=== PATIENT | male | born 1985 | race Caucasian/White ===

== ENCOUNTER 2016-06-22 20:46 | Emergency (ER) | payer OTHER ==
[~2016-06-22] VITALS: Ht 175.3 cm; Wt 71.4 kg
[~2016-06-22 20:46] MED LIST: IBUP-1827 PO; ONDA4TAB9 PO
[2016-06-22 21:00] VITALS: BP 129/79; PULSE 71; RESP 20; O2SAT 99
--- NOTE | 2016-06-23 00:18 | ED.REPORT ---
HPI-Extremity Problem Upper Date of Service Jun 23, 2016 ED Provider: Erick Webster MD A 31 year old male with a history of recent medical visit for kidney stones presents to the ED complaining of an infection in his right arm. The pt was seen at [facility] for kidney stones several days ago, at which point an IV was placed. The IV site was bleeding during this initial visit. The site became red , painful, and swollen following discharge. The pt was seen for these symptoms yesterday and was prescribed Clindamycin. He has taken the doses for yesterday and today. His symptoms, however, have worsened and he is now experiencing a fever and difficulty moving his arm due to the pain. Nursing Notes Stated Complaint: RIGHT ARM INFECTION Chief Complaint: Extremity Trauma Nursing Notes Reviewed: Yes Allergies: Coded Allergies: No Known Allergies (Unverified , 11/06/15) Scheduled Amoxicillin/Clav K 875-125 mg (Augmentin 875-125 mg) 1 Each Tablet 1 TABLET PO BID Ondansetron ODT (Ondansetron ODT) 8 Mg Tab.rapdis 8 MG PO QID Scheduled PRN Ibuprofen (Ibuprofen) 600 Mg Tablet 600 MG PO QID PRN PRN For Pain Naproxen (Naprosyn) 500 Mg Tablet 500 MG PO BID PRN PRN For Pain Ondansetron ODT (Zofran ODT) 4 Mg Tablet 4 MG PO Q4H PRN PRN For Nausea oxyCODONE-Acetaminophen 5-325 mg (oxyCODONE-Acetaminophen 5-325 mg) 1 Each Tablet 1-2 TAB PO Q6H PRN PRN For Pain General Time Seen by : 00:17 Chief Complaint Other (Right arm infection) Hx Obtained From: Patient Arrived By: Walk-in Onset Occurred: 4 days ago ("several days") Symptom Duration: Since onset Recent Healthcare: No recent hospitalization, Recent doctor visit Similar Sx Previous: No Past Medical History Past Medical History kidney stones Past Surgical History none reported Smoking History Unknown if Ever Smoker Ambulatory Status Independent Review of Systems Review of Systems Note: right arm redness Constitutional: Reports: Fever Musculoskeletal: Reports: Extremity pain, Extremity swelling, Denies: Back pain Skin: Denies Rash Complete sys rev & neg: except as marked. Cardiovascular: Denies: Chest pain GI: Denies: Abdominal pain, Vomiting Physical Exam Initial Vital Signs Vital Signs (First) Date Time Temp Pulse Resp B/P Pulse Ox O2 Delivery O2 Flow Rate FiO2 06/22/16 21:00 37.1 71 20 129/79 99 Room Air Initial VS: Reviewed General/Constitutional: Awake, Alert Neck: Atraumatic, Supple, Full range of motion Respiratory / Chest: Atraumatic, Breath sounds NL, Breath sounds = bilat, No respiratory distress Cardiovascular: Heart rate NL, Regular rhythm, Heart sounds NL Upper Extremity / MS: No deformity erythematous patch around IV site on right arm erythema and tenderness proximal and distal to area difficulty moving right arm axillary adenopathy Skin: Atraumatic, Warm, Dry Neurologic: Oriented X3, Speech NL, No motor deficits, No sensory deficits Head / Eyes: Atraumatic, Normocephalic, PERRL, EOMI ENT: Atraumatic, Airway patent, Mucous membranes moist Abdomen: Atraumatic, Soft, Non-tender Back: Atraumatic, Full range of motion Lower Extremity / Pelvis / MS: Atraumatic, Full range of motion Psychiatric: Affect NL, Mood NL Re-Eval/Medical Decision Med Decision/Clinical Course 31-year-old presents with arm cellulitis at an IV site. He is been on clindamycin for two days with no improvement. Hospital admission offered but declined. We will add Augmentin to his current clindamycin. Hot soaks elevation and brief Percocet course. He is been somewhat evasive about pain medicines available home, initially saying that he had thrown away his Vicodin, but has Vicodin pills currently in his possession. Nevertheless, he has an obviously painful arm and will require some pain relief. Advised explicitly that his narcotics will not be renewed via the emergency department. Source of Hx: Old records Re-Evaluation/Progress : Time of Eval: 00:17 Patient Status: Condition improved Re-Evaluation/Progress Note: Pt informed of the diagnosis and plan for discharge during the initial interview. The pt understands and agrees with the plan. All questions are addressed at this time. Counseled Regarding: Diagnosis, Need for follow-up, When/why to return to ED Discharge & Departure Impression: Primary Impression: Cellulitis Additional Impression: IV site infection Disposition: Home Discharge Condition All VS Reviewed: Yes Condition: Stable Patient Instructions: Cellulitis (ED) Additional Instructions: Add Augmentin twice daily to your antibiotics currently in use. Continue Percocet two tabs every four hours as needed for pain. Hot soak to the area four times daily for 15-20 minutes each time Follow-up with your doctor in the office. Return if worsening despite treatment. This may ultimately require inpatient treatment, but I understand your desire to try and manage this as an outpatient. Add Naprosyn twice daily also for pain. Zofran if needed for nausea, to four times daily. Referrals: Moni Mina MD (PCP) aNomy Attestation Portions of this note were transcribed by Steve Barrera. I, Dr. Webster personally performed the history, physical exam and medical decision-making; I reviewed and confirmed the accuracy of the information in the transcribed note. Signed by: Naomy Leiva, 06/23/2016 and 0039. copies to: Moni Mina MD, Christopher W MD Jun 23, 2016 00:18 STEVE BARRERA Jun 23, 2016 00:31
[2016-06-23] MEDS ORDERED: _oxyCODONE/APAP 5-325 mg Tablet PO PRN (00:30)
[2016-06-23] MEDS ORDERED: oxyCODONE-Acetamin 5-325 mg Tablet PO ONE (00:30)
[2016-06-23] MEDS ORDERED: Amoxicillin-Clav 875-125 mg Tablet PO ONE (00:30)
[2016-06-23] MEDS ORDERED: Ketorolac 30 mg/mL 2 mL Inj IM ONE (00:30)
[2016-06-23] MEDS ORDERED: NAPR500T PO (00:33)
[2016-06-23] MEDS ORDERED: ONDA8TAB10 PO (00:33)
[2016-06-23] MEDS ORDERED: AMOX-366 PO (00:33)
[2016-06-23] MEDS ORDERED: OXYC1TAB24 PO (00:34)
== END 2016-06-23 01:33 | disposition home or self-care (01) ==
LOC: SED 20:46
DX: L03.113 Cellulitis of right upper limb (principal); T82.7XXA Infection and inflammatory reaction due to other cardiac and vascular devices, implants and grafts, initial encounter; Y71.2 Prosthetic and other implants, materials and accessory cardiovascular devices associated with adverse incidents; Y92.9 Unspecified place or not applicable; Y93.9 Activity, unspecified; Y99.9 Unspecified external cause status; Z87.442 Personal history of urinary calculi
CPT/HCPCS: 96372; 99283; J1885

== ENCOUNTER 2016-07-10 17:59 | Emergency (ER) | payer OTHER ==
[~2016-07-10] VITALS: Ht 175.3 cm; Wt 70.9 kg
[~2016-07-10 17:59] MED LIST changes: +AMOX-366 PO; +NAPR500T PO; +ONDA8TAB10 PO; +OXYC1TAB24 PO
[2016-07-10 18:02] VITALS: BP 145/92; PULSE 65; RESP 15; O2SAT 98
[2016-07-10] MEDS ORDERED: 0.9% Sodium Chloride 1,000 ML IV ONE ×2 (18:15→20:05)
--- NOTE | 2016-07-10 18:47 | ED.REPORT ---
HPI-Abd Pain M Under 39 Date of Service Jul 10, 2016 ED Provider: Michi Lopez MD A 31 year old male with a history of anxiety and nephrolithiasis presents to the ED with sharp LUQ abdominal pain onset three days ago, after reportedly trying methamphetamines for the first time. Associated symptoms include generalized myalgias, nausea, vomiting, and diarrhea. The patient denies dysuria or other symptoms. He has been seen twice in the ED at [facility] since onset of his symptoms, most recently this morning. The patient reports using methamphetamines again yesterday. His labs from [facility] on 07/09/16 indicate a normal white count and unremarkable chemistries. His urinalysis at that time resulted 1+ ketones and 1+ protein. Nursing Notes Stated Complaint: ABDOMINAL PAIN Chief Complaint: Male Abdominal Pain Nursing Notes Reviewed: Yes Allergies: Coded Allergies: No Known Allergies (Unverified , 11/06/15) Scheduled Amoxicillin/Clav K 875-125 mg (Augmentin 875-125 mg) 1 Each Tablet 1 TABLET PO BID Famotidine (Pepcid) 40 Mg Tablet 40 MG PO BID Ondansetron ODT (Ondansetron ODT) 8 Mg Tab.rapdis 8 MG PO QID Scheduled PRN Ibuprofen (Ibuprofen) 600 Mg Tablet 600 MG PO QID PRN PRN For Pain Naproxen (Naprosyn) 500 Mg Tablet 500 MG PO BID PRN PRN For Pain Ondansetron ODT (Zofran ODT) 4 Mg Tablet 4 MG PO Q4H PRN PRN For Nausea oxyCODONE-Acetaminophen 5-325 mg (oxyCODONE-Acetaminophen 5-325 mg) 1 Each Tablet 1-2 TAB PO Q6H PRN PRN For Pain General Time Seen by MD: 18:14 Chief Complaint Abdominal pain Hx Obtained From: Patient Arrived By: Walk-in Sudden in Onset?: Yes Onset Occurred: 3 days ago Symptom Duration: Since onset Location: : LUQ Quality: Painful, Sharp Severity: Current: Moderate Severity: Maximum: Moderate Associated with: Reports: Diarrhea, Nausea, Vomiting, Denies: Dysuria, Fever Pertinent Negative: Relieved by nothing Recent Healthcare: Recent doctor visit Similar Sx Previous: Yes Past Medical History CT scan 05/19 at [facility]: Nephrolithiasis, mild hydronephrosis Past Medical History Nephrolithiasis Anxiety Past Surgical History None reported Smoking History Unknown if Ever Smoker Social History Reportedly used methamphetamines twice between 07/08 and 07/10 with no prior use Ambulatory Status Independent Review of Systems Constitutional: Denies: Fever Respiratory: Denies: Non-productive cough, Shortness of breath GI: Reports: Abdominal pain (LUQ), Diarrhea, Nausea, Vomiting Male: Denies Dysuria Musculoskeletal: Reports: Myalgia (Generalized) Complete sys rev & neg: except as marked. Physical Exam Initial Vital Signs Vital Signs (First) Date Time Temp Pulse Resp B/P Pulse Ox O2 Delivery O2 Flow Rate FiO2 07/10/16 18:02 35.9 65 15 145/92 98 Room Air Initial VS: Reviewed Head / Eyes: Atraumatic, Normocephalic Skin: Warm, Dry Neurologic: Alert, Oriented Psychiatric: Mood/affect normal, Behavior normal General/Constitutional: Awake, Alert Respiratory / Chest: Breath sounds NL, Breath sounds = bilat, No respiratory distress Cardiovascular: Heart rate NL, Regular rhythm, Heart sounds NL, No gallop, No murmurs, No rubs Abdomen: BS normoactive Flat muscular abdomen with voluntary muscle contractions making abdominal exam difficult. No definite abdominal tenderness appreciated. Back: Full range of motion Flank / Spine / Paraspinal: Positive: Flank tender L Interpretation & Diagnostics URINE DRUG SCREEN: + Marijuana + Opiates + Amphetamines Otherwise Negative Lab Results Interpretation Result Diagram: 07/10/16183707/10/161837 Test 07/10/16 18:38 07/10/16 20:37 White Blood Count 7.7th/mm3 (3.8-10.1) Red Blood Count 4.47mil/mm3 (4.40-5.80) Hemoglobin 14.4g/dL (13.8-17.2) Hematocrit 41.3% (41.0-50.0) Mean Corpuscular Volume 92.4fL (81-100) Mean Corpuscular Hemoglobin 32.2pg (27.0-35.0) Mean Corpuscular Hemoglobin Concent 34.9% (32.0-37.0) Red Cell Distribution Width 11.9% (12.3-15.4) Platelet Count 310bil/L (150-400) Neutrophils (%) (Auto) 63.8% (40-74) Lymphocytes (%) (Auto) 22.3% (14-46) Monocytes (%) (Auto) 11.3% (4-12) Eosinophils (%) (Auto) 2.2% (0-5) Basophils (%) (Auto) 0.3% (0-3) Sodium Level 138mEq/L (134-144) Potassium Level 3.6mEq/L (3.5-5.2) Chloride Level 100mEq/L (97-108) Carbon Dioxide Level 21mmol/L (18-29) Blood Urea Nitrogen 13mg/dL (6-20) Creatinine 0.76mg/dL (0.76-1.27) Estimat Glomerular Filtration Rate 126mL/min (>59) Glucose Level 95mg/dL (60-99) Calcium Level 9.6mg/dL (8.5-10.1) Magnesium Level 1.9mg/dL (1.6-2.6) Total Bilirubin 1.6mg/dL (0.0-1.2) Aspartate Amino Transf (AST/SGOT) 28U/L (0-50) Alanine Aminotransferase (ALT/SGPT) 33U/L (0-44) Alkaline Phosphatase 52U/L (25-150) Total Protein 7.2g/dL (6.4-8.4) Albumin 4.5g/dL (3.4-5.0) Lipase 16U/L (13-60) Hold Taylor Top Tube Received (Received) Urine Color Yellow (YELLOW) Urine Appearance Clear (CLEAR,HAZY) Urine pH 6.5 (5.0-8.0) Urine Specific Butler 1.020 (1.003-1.035) Urine Protein Negativemg/dL (NEG,TRACE) Urine Glucose (UA) Negativemg/dL (NEGATIVE) Urine Ketones 15mg/dL (NEGATIVE) Urine Occult Blood Negative (NEGATIVE) Urine Nitrite Negative (NEGATIVE) Urine Bilirubin Negative (NEGATIVE) Urine Urobilinogen Normalmg/dL (NORMAL) Urine Leukocyte Esterase Negative (NEGATIVE) Urine RBC 0-2/hpf (0-2) Urine WBC 0-5/hpf (0-5) Urine Epithelial Cells Occasional/hpf (NONE-MOD) Urine Crystals None seen (NONE SEEN) Urine Bacteria None/hpf (NONE-FEW) Urine Hyaline Casts None/lpf (NONE) Urine Granular Casts None seen (NONE SEEN) Urine Waxy Casts None seen (NONE SEEN) Urine Red Blood Cell Casts None seen (NONE SEEN) Urine White Blood Cell Casts None seen (NONE SEEN) Urine Mucus None seen (None Seen) Urine Trichomonas None seen (NONE SEEN) Urine Yeast None (NONE SEEN) Urinalysis Comment None Urine Culture Reflexed Not indicated Urine Opiates Screen Negative Urine Methadone Screen Negative Urine Barbiturates Screen Negative Urine Amphetamines Screen Positive Urine Benzodiazepines Screen Negative Urine Cocaine Metabolite Screen Negative Urine Cannabinoids Screen Positive Re-Eval/Medical Decision Med Decision/Clinical Course abdominal pain in setting of recent meth use. considered ulcer, UTI/ureteral stone, obstrucion or mesenteric ischemia among other possibilties. Exam/labs reassuring. Tolerating PO post zofran, fluids and toradol. Will dishcarge Source of Hx: Old records Re-Evaluation/Progress : Time of Eval: 22:26 Patient Status: Condition improved Re-Evaluation/Progress Note: Discussed with patient lab results, diagnosis, and plan for discharge. Follow-up and return to the ER instructions given. Patient agrees with plan for care and all questions were addressed. Counseled Regarding: Diagnosis, Lab results, Need for follow-up, When/why to return to ED Patient Discharge & Departure Primary Impression: Generalized abdominal pain Additional Impression: Substance abuse Disposition: Home Discharge Condition All VS Reviewed: Yes Condition: Improved Patient Instructions: Acute Abdominal Pain (ED) Additional Instructions: We did not find a serious cause for abdominal pain in the ED tonight. Hopefully if you don't continue to use meth you will feel better soon. Take pepcid 40mg twice a day for 2 weeks. May use tylenol as needed for muscle aches. Follow up with primary care in 3-5 days. Return to ED for increasing abdominal pain or frequent vomiting. Referrals: Amando Olmedo MD Attestation Portions of this note were transcribed by Nicolle Santana. I, Dr. Lopez, personally performed the history, physical exam, and medical decision-making; I reviewed and confirmed the accuracy of the information in the transcribed note. Signed by: Naomy Sin, 07/10/2016, 22:55 copies to: Moni Mina MD, Donald L MD Jul 10, 2016 18:47 NICOLLE SANTANA Jul 10, 2016 18:56
[2016-07-10] MEDS ORDERED: Ondansetron 2 mg/mL 2 mL Inj IVPUSH PRN (18:50)
[2016-07-10 18:54] LABS: BASOPHILS % (AUTO) 0.3 % (0-3); EOSINOPHILS % (AUTO) 2.2 % (0-5); MONOCYTES % (AUTO) 11.3 % (4-12); Mean Corpuscular Hemoglobin 32.2 pg (27.0-35.0); Mean Corpuscular Volume 92.4 fL (81-100); NEUTROPHILS % (AUTO) 63.8 % (40-74); Platelet Count 310 bil/L (150-400)
[2016-07-10 19:07] LABS: Magnesium 1.9 mg/dL (1.6-2.6)
[2016-07-10 20:50] VITALS: BP_SYST 149; BP_SYST 160; BP_DIAS 91; BP_DIAS 98; PULSE 54; PULSE 57; RESP 18; O2SAT 98
[2016-07-10 20:51] VITALS: BP 144/85; PULSE 109
[2016-07-10 21:01] LABS: APPEARANCE,URINE CLEAR (CLEAR,HAZY); COLOR,URINE YELLOW (YELLOW); OCCULT BLOOD,URINE NEGATIVE (NEGATIVE); PH,URINE 6.5 (5.0-8.0); UROBILINOGEN,URINE NORMAL (NORMAL)
[2016-07-10] MEDS ORDERED: FAMO40TA72 PO (22:33)
[2016-07-10] MEDS ORDERED: hydrOXYzine Pamoate 25 mg Capsule PO ONE (22:35)
[2016-07-10 23:25] VITALS: BP 140/91; PULSE 88; RESP 18; O2SAT 98
== END 2016-07-10 23:25 | disposition home or self-care (01) ==
LOC: SED 17:59
DX: R10.84 Generalized abdominal pain (principal); F15.10 Other stimulant abuse, uncomplicated
CPT/HCPCS: 36415; 80053; 81000; 81002; 83690; 83735; 85025; 90791; 96361; 96374; 96375; 99284; G0480; J1885; J2405; J7030; Q0177

== ENCOUNTER 2016-08-10 23:16 | Emergency (ER) | payer OTHER ==
[~2016-08-10] VITALS: Ht 180.3 cm; Wt 68.2 kg
[~2016-08-10 23:16] MED LIST changes: +FAMO40TA72 PO
[2016-08-10 23:21] VITALS: BP 144/82; PULSE 69; RESP 20; O2SAT 95
[2016-08-10] MEDS ORDERED: Ondansetron 8 mg ODT Tablet ONE (23:36)
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
[2016-08-11] MEDS ORDERED: 0.9% Sodium Chloride 1,000 ML IV ONE (00:19)
[2016-08-11] MEDS ORDERED: Haloperidol 5 mg/mL Inj IVPUSH ONE (00:20)
[2016-08-11 01:03] LABS: BASOPHILS % (AUTO) 0.2 % (0-3); EOSINOPHILS % (AUTO) 0.8 % (0-5); Mean Corpuscular Volume 92.4 fL (81-100); NEUTROPHILS % (AUTO) 69.5 % (40-74); Platelet Count 274 bil/L (150-400)
[2016-08-11] MEDS ORDERED: ONDA4TAB9 PO (02:21)
[2016-08-11] MEDS ORDERED: TRAZ-115 PO (03:13)
[2016-08-11] MEDS ORDERED: SERT50TA9 PO (03:13)
[2016-08-11 03:32] VITALS: BP 119/83; PULSE 108; RESP 18; O2SAT 98
--- NOTE | 2016-08-11 08:18 | DRSVH ---
PROCEDURE: CT BRAIN WITHOUT CONTRAST ([id number]) INDICATIONS: headache meth use TECHNIQUE: Noncontrast 4.5 mm thick angled axial sections acquired from the foramen magnum to the vertex, with c oronal reformats. COMPARISON: None. FINDINGS: Preliminary report by lieutenant shift supervisor radiology Image quality: Excellent. CSF spaces: Basal cisterns are patent. No extra-axial fluid collections. Ventricles are normal in size and shape. Brain: No midline shift. No intracranial masses or hemorrhage. Butcher-white matter interface is norm al. Skull and face: Calvarium and visualized facial bones are intact, without suspicious lesions. Sinuses: Visualized sinuses and mastoids are clear. IMPRESSION: Normal CT brain scan, no evidence of intracranial hemorrhage. Findings concordant with the preliminary report Dictated by: Bony Du M.D. on 08/11/2016 at 8:15 Approved by: Bony Du M.D. on 08/11/2016 at 8:16
[2016-08-12] MEDS ORDERED: OLAN10TA5 PO (04:45)
== END 2016-08-11 03:33 | disposition home or self-care (01) ==
LOC: SED 23:16
DX: F19.10 Other psychoactive substance abuse, uncomplicated (principal); R11.2 Nausea with vomiting, unspecified
CPT/HCPCS: 36415; 70450; 80053; 81002; 82075; 83690; 85025; 96374; 96375; 99284; J1200; J1630; J7030

== ENCOUNTER 2016-08-12 03:47 | Emergency (ER) | payer OTHER ==
[~2016-08-12] VITALS: Ht 177.8 cm; Wt 70.5 kg
[~2016-08-12 03:47] MED LIST changes: +SERT50TA9 PO; +TRAZ-115 PO
[2016-08-12 03:55] VITALS: BP 126/76; PULSE 60; RESP 16; O2SAT 100
--- NOTE | 2016-08-12 04:30 | ED.REPORT ---
HPI-General Illness Date of Service August 12, 2016 ED Provider: Lalito Craft MD A 31 year old male with a history of kidney stones and meth abuse presents to the ED from [facility] complaining of insomnia and visual hallucinations that began 7 days ago. He describes the hallucinations as "dark shadows". Patient recently relapsed on meth and reportedly hasn't slept for the past 7 days. He was seen in the ED on 08/09 for abdominal pain and was discharged in good condition after reassuring workup. He denies any auditory hallucinations. Patient has not used in over 24 hours and has reportedly unable to take his sertraline. Nursing Notes Stated Complaint: SUBSTANCE ABUSE Chief Complaint: Substance Abuse Nursing Notes Reviewed: Yes Allergies: Coded Allergies: No Known Allergies (Unverified , 08/10/16) Scheduled Amoxicillin/Clav K 875-125 mg (Augmentin 875-125 mg) 1 Each Tablet 1 TABLET PO BID Famotidine (Pepcid) 40 Mg Tablet 40 MG PO BID Olanzapine ODT (Zyprexa Zydis) 10 Mg Tablet 10 MG PO HS Ondansetron ODT (Ondansetron ODT) 8 Mg Tab.rapdis 8 MG PO QID Sertraline HCl (Sertraline) 50 Mg Tablet 50 MG PO DAILY Trazodone (Trazodone) 50 Mg Tablet 50 MG PO HS Scheduled PRN Ibuprofen (Ibuprofen) 600 Mg Tablet 600 MG PO QID PRN PRN For Pain Naproxen (Naprosyn) 500 Mg Tablet 500 MG PO BID PRN PRN For Pain Ondansetron ODT (Zofran ODT) 4 Mg Tablet 4 MG PO Q4H PRN PRN For Nausea Ondansetron ODT (Zofran ODT) 4 Mg Tablet 4 MG PO QID PRN PRN For Nausea oxyCODONE-Acetaminophen 5-325 mg (oxyCODONE-Acetaminophen 5-325 mg) 1 Each Tablet 1-2 TAB PO Q6H PRN PRN For Pain General Time Seen by MD: 04:29 Chief Complaint Other (Insomnia) Hx Obtained From: Patient Arrived By: Walk-in Sudden in Onset?: No Onset Occurred: 1 week ago Symptom Duration: Since onset Pertinent Negative: Pt denies other symptoms Recent Healthcare: No recent doctor visit, No recent hospitalization Past Medical History Past Medical History Nephrolithiasis Anxiety Past Surgical History None reported Smoking History Unknown if Ever Smoker Social History Alcohol Use: Denies alcohol use Drug Use: Denies drug use, Meth, Other Other Social History: Homeless Ambulatory Status Independent Review of Systems Full Review of Systems Constitutional: Denies: Chills, Fever Respiratory: Denies: Shortness of breath GI: Denies: Vomiting Psychiatric: Reports: Hallucinations, visual, Insomnia, Denies: Hallucinations, auditory Complete sys rev & neg: except as marked. Physical Exam Vital Signs Vital Signs Date Time Temp Pulse Resp B/P Pulse Ox O2 Delivery O2 Flow Rate FiO2 08/12/16 05:31 36.5 60 16 118/71 100 Room Air 08/12/16 03:55 36.2 60 16 126/76 100 Room Air Initial VS: Reviewed, Vital signs normal Neck: Supple, Non-tender, Full range of motion Skin: Warm, Dry, No cyanosis Neurologic: Alert, Oriented, Nonfocal General/Constitutional: Awake, Alert Distress / Hydration: Positive: Distress mild (due to insomnia ) Behavior: Positive: Anxious Head / Eyes: Atraumatic, Normocephalic Respiratory / Chest: Atraumatic, No respiratory distress Upper Extremities Upper Extremity / MS: Atraumatic, Neurologic intact, Vascular intact Lower Extremity / Pelvis / MS: Atraumatic, Neurologic intact, Vascular intact Psychiatric: Affect NL, Mood NL, Not suicidal, Not homicidal Abnormal Thinking / Perception: Positive: Hallucinations, visual, Negative: Hallucinations, auditory Re-Eval/Medical Decision Med Decision/Clinical Course 31-year-old male who is currently at [facility] for methamphetamine detox. He has been unable to sleep for days. He was given a dose of Zyprexa Zydis 10 mg to help him sleep tonight and then a prescription for 3 tablets to use over the next 3 nights to try and reestablish his sleep cycle and block some of the effects of the methamphetamine. He is being returned to [facility]. Time of Eval: 04:49 Patient Status: Condition improved Re-Evaluation/Progress Note: Patient is rechecked. He is informed of his results and diagnosis. All of the patient's questions are addressed. He understands and agrees with the treatment plan to go back to [facility]. Counseled Regarding: Diagnosis, Lab results, Need for follow-up, When/why to return to ED Discharge & Departure Primary Impression: Insomnia Insomnia type: unspecified Qualified Code: G47.00 - Insomnia, unspecified Additional Impression: Methamphetamine abuse Disposition: Home Discharge Condition All VS Reviewed: Yes Condition: Improved Patient Instructions: Methamphetamine (By mouth) Additional Instructions: Olanzapine (Zyprexa Zydis) 10 mg dissolved orally every night for 3 nights to re-establish your sleep pattern. Referrals: Moni Mina MD (PCP) Scribe Attestation Portions of this note were transcribed by Megha Villanueva. I, Dr. Craft personally performed the history, physical exam and medical decision-making; I reviewed and confirmed the accuracy of the information in the transcribed note. Signed by: Naomy Ramirez, 08/12/16 0450. copies to: Moni Mina MD, Howard L MD August 12, 2016 04:30 MEGHA VILLANUEVA August 12, 2016 04:38
[2016-08-12] MEDS ORDERED: OLANZapine Zydis ODT 5 mg Tablet PO ONE (04:40)
[2016-08-12] MEDS ORDERED: OLAN10TA5 PO (04:45)
[2016-08-12 05:31] VITALS: BP 118/71; PULSE 60; RESP 16; O2SAT 100
== END 2016-08-12 05:32 | disposition home or self-care (01) ==
LOC: SED 03:47
DX: G47.00 Insomnia, unspecified (principal); F15.10 Other stimulant abuse, uncomplicated; F11.10 Opioid abuse, uncomplicated; F17.210 Nicotine dependence, cigarettes, uncomplicated; Z87.442 Personal history of urinary calculi